=== PATIENT | male | born 1990 | race Caucasian/White ===

== ENCOUNTER 2019-02-03 04:23 | Emergency (ER) | payer BC, OTHER ==
[~2019-02-03] VITALS: Ht 180.3 cm; Wt 59.1 kg
[2019-02-03] MEDS ORDERED: neomy sulf/polymyx B sulf/HC 10ml otic suspension RIGHT EAR ONE (04:40)
[2019-02-03] MEDS ORDERED: COROTSUS OT (04:50)
[2019-02-03 05:06] VITALS: BP 121/68
== END 2019-02-03 05:08 | disposition home or self-care (01) ==
LOC: ER 04:26
DX: H60.91 Unspecified otitis externa, right ear (principal)
CPT/HCPCS: 82948; 99283